=== PATIENT | male | born 1965 | race Caucasian/White ===

== ENCOUNTER → 2016-09-09 | Outpatient (CLI) | payer BC ==
[2016-09-09 09:58] LABS: BUN 15 mg/dL (7-18)
[2016-09-09 10:01] LABS: GFR (ESTIMATED) 101 ML/MIN (>60)
== END ==
LOC: LAB 09:00
PROVIDERS: Nurse Practitioner Family
DX: I10 Essential (primary) hypertension (principal); E78.5 Hyperlipidemia, unspecified